=== PATIENT | male | born 1995 | race Two or more races ===

== ENCOUNTER 2022-09-17 11:00 | Emergency (ER) | payer OTHER ==
[~2022-09-17] VITALS: Ht 167.6 cm; Wt 72.6 kg
--- NOTE | 2022-09-17 11:15 | NUR ---
RECEIVED PT 27 YRS MALE MARTI IN C/O TESTIICUL PAIN ASINCE LAST NIGHT
--- NOTE | 2022-09-17 13:34 | NUR ---
Patient discharged to home in stable condition. Written and verbal after care instructions given. Patient verbalizes understanding of instruction.
[2022-09-17 13:35] VITALS: BP 124/72
== END 2022-09-17 13:35 | disposition home or self-care (01) ==
LOC: ER 11:18
DX: N50.812 Left testicular pain (principal); L30.9 Dermatitis, unspecified
CPT/HCPCS: 76870-TC